=== PATIENT | female | born 2000 ===

== ENCOUNTER 2021-05-08 08:39 | Emergency (ER) | payer SELFPAY | END 2021-05-08 09:50 | disposition home or self-care (01) | LOC: NAV ERS 08:39 | DX: G56.01 Carpal tunnel syndrome, right upper limb (principal); F17.210 Nicotine dependence, cigarettes, uncomplicated | CPT/HCPCS: 99283 ==

== ENCOUNTER 2021-06-14 13:47 | Emergency (ER) | payer SELFPAY ==
[2021-06-15 12:09] LABS: SARS-CoV-2 PCR by NAA DETECTED (NotDetected)
== END 2021-06-14 14:30 | disposition home or self-care (01) ==
LOC: NAV ERS 13:47
DX: U07.1 COVID-19 (principal); F17.210 Nicotine dependence, cigarettes, uncomplicated
CPT/HCPCS: 93005; U0003; U0005